=== PATIENT | female | born 1970 | race Caucasian/White ===

== ENCOUNTER 2020-08-05 15:42 | Emergency (ER) | payer SELFPAY ==
[~2020-08-05] VITALS: Ht 170.2 cm; Wt 77.3 kg
[2020-08-05 15:45] VITALS: Ht 170.2 cm; Wt 77.3 kg
[2020-08-05] MEDS ORDERED: NAPROSYN500 MG PO (17:56)
[2020-08-05 18:00] VITALS: BP 168/89
== END 2020-08-05 18:00 | disposition home or self-care (01) ==
LOC: D.ER 15:42
DX: M25.531 Pain in right wrist (principal)

== ENCOUNTER 2021-01-03 23:36 | Emergency (ER) | payer SELFPAY ==
[~2021-01-03] VITALS: Ht 170.2 cm; Wt 90.9 kg
[~2021-01-03 23:36] MED LIST: NAPROSYN500 MG PO
[2021-01-03 23:47] VITALS: Ht 170.2 cm; Wt 90.9 kg
[2021-01-04] MEDS ORDERED: NAPROSYN500 MG PO (00:30)
[2021-01-04] MEDS ORDERED: TYLENOL ARTHRI650 MG PO (00:30)
[2021-01-04] MEDS ORDERED: LISINOPRIL5 MG PO (01:11)
[2021-01-04 02:26] VITALS: BP 175/93
== END 2021-01-04 02:27 | disposition home or self-care (01) ==
LOC: D.ER 23:36
DX: I10 Essential (primary) hypertension (principal); S93.401A Sprain of unspecified ligament of right ankle, initial encounter; S93.601A Unspecified sprain of right foot, initial encounter; Z91.14 Patient's other noncompliance with medication regimen; W19.XXXA Unspecified fall, initial encounter; Y93.9 Activity, unspecified; Y92.9 Unspecified place or not applicable; E11.9 Type 2 diabetes mellitus without complications

== ENCOUNTER 2021-03-02 02:03 | Inpatient (IN) | payer MEDICAID ==
[~2021-03-02] VITALS: Ht 170.2 cm; Wt 109.1 kg
[2021-03-02] VITALS (7 sets, daily range): BP systolic 128–196; BP diastolic 86–137; Ht 170.2 cm; Wt 109.1 kg
[~2021-03-02 02:03] MED LIST changes: +LISINOPRIL5 MG PO; +TYLENOL ARTHRI650 MG PO
[2021-03-02 02:27] LABS: BASOPHILS 0.2 % (0-2); EOSINOPHILS 1.7 % (0-7); HEMATOCRIT 36.8 % (36.0-48.0); HEMOGLOBIN 11.8 g/dL (12-16); IMMATURE GRANULOCYTES 0.3 % (0-5); LYMPHOCYTE ABS# 3.21 10x3/uL (1.18-3.74); LYMPHOCYTES 26.8 % (15-50); MCHC 32.1 g/dL (31.0-37.0); MCV 81.2 fL (80.0-100.0); MEAN PLATELET VOLUME 9.9 fL (7.4-10.4); MONOCYTES 5.7 % (2-11); NEUTROPHIL ABS# 7.82 10x3/uL (1.56-6.13); NEUTROPHILS 65.3 % (40-80); PLATELET COUNT 374 10x3/uL (130-400); RBC 4.53 10x6/uL (4.00-5.40); RDW 15.9 % (11.5-14.5)
[2021-03-02 02:36] LABS: CALC OSMOLALITY 279 mosm/kg (275-300); CALCIUM 8.5 mg/dL (8.5-10.1); CARBON DIOXIDE 27.9 mmol/L (21.0-32.0); CHLORIDE - SERUM 103 mmol/L (98-107); CREATININE - SERUM 1.1 mg/dL (0.6-1.3); GLUCOSE 120 mg/dL (74-106); POTASSIUM - SERUM 3.5 mmol/L (3.5-5.1); SODIUM 139 mmol/L (136-145); UREA NITROGEN 15 mg/dL (7-18); eGFR NON AFRICAN AMERICAN 55 mL/min (90-120)
[2021-03-02 02:39] LABS: APTT 25.8 SECONDS (22.8-39.4); INR 1.16 (0.85-1.17); PROTIME 13.7 SECONDS (11.6-15.0)
[2021-03-02 02:50] LABS: ALBUMIN 2.8 g/dL (3.4-5.0); ALKALINE PHOSPHATASE 142 U/L (30-120); ALT (SGPT) 40 U/L (10-68); BILIRUBIN - TOTAL 0.32 mg/dL (0.2-1.3); CKMB 3.6 U/L (0.0-3.6); CREATINE KINASE 136 UL (21-215); PRO BNP 3803 pg/mL (0-125); PROTEIN - SERUM 7.6 g/dL (6.4-8.2); TROPONIN-I 0.055 ng/mL (0.000-0.060)
--- NOTE | 2021-03-02 05:28 | NUR ---
0435-- PT TO ROOM WITH ER STAFF. VERY DRAMATIC ABOUT HER DOG HAVING TO GO HOME BUT THEN STATES THAT THERE'S NO WAY THAT SHE WOULD HAVE BEEN ABLE TO TAKE HER OUT TO POTTY. PT REPORTS THAT SHE WASN'T ABLE TO BREATH WHILE IN BED LAST NIGHT & SHE TOLD HER TO BRING HER IN AND HE DECIDED TO YELL AT HER FOR 2 HOURS PRIOR TO HER ARRIVAL. 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 PT ALSO STATES THAT HER RIGHT FOOT IS BROKEN BUT NO ONE IS TAKING THE XRAY OF IT PROPERLY. X2 IV RIGHT WRIST & LEFT UPPER SHOULDER. STATES THAT SHE ISN'T DIABETIC BUT RATHER HER PANCREAS WAS SMASHED WHEN SHE WAS YOUNG & CAUSES HER TO BE HYPOGLYCEMIC.
--- NOTE | 2021-03-02 07:40 | NUR ---
Sitting up in bed, awake/alert/oriented, T/R self ad jenni, cont of B/B with BRPs per self ad jenni, denies pain/other discomfort at this time, call light/phone/water within reach, no s/s of acute distress observed.
--- NOTE | 2021-03-02 11:30 | NUR ---
BP 196/137, called AYANA Elizabeth, received order to increase Lisinopril to 10 mg and for IV Hydralazine 10 mg q 6h PRN for SBP > 170 or DBP > 105.
--- NOTE | 2021-03-02 12:40 | NUR ---
Pt called nurse's station stating "something's not right", call answered by FIFI Casas, pt lips swollen, breathing labored, and swelling throughout her body, FIFI Casas called AYANA Elizabeth and got order for Pepcid and Benadryl IV now, added Vanc to her allergy list, allergy bracelet placed on pt at this time
--- NOTE | 2021-03-02 13:00 | NUR ---
Rechecked, cont to improve with noticeable decrease in swelling and SOB is greatly lessened.
--- NOTE | 2021-03-02 19:20 | NUR ---
PT IN BED, AAO X 4, RESP EVEN AND UNLABORED, NO DISTRESS NOTED, CL IN REACH, SR UP X 2.
[2021-03-02 22:31] LABS: BILIRUBIN NEGATIVE (NEGATIVE); KETONE NEGATIVE (NEGATIVE); NITRITE NEGATIVE (NEGATIVE); UROBILINOGEN NORMAL mg/dL (< 2)
[2021-03-02 22:39] LABS: UDS - AMPHET POSITIVE QUAL (NEGATIVE); UDS - BARB NEGATIVE QUAL (NEGATIVE); UDS - BENZO NEGATIVE QUAL (NEGATIVE); UDS - COCAINE NEGATIVE QUAL (NEGATIVE); UDS - OPIATE NEGATIVE QUAL (NEGATIVE); UDS - PCP NEGATIVE QUAL (NEGATIVE); UDS - THC NEGATIVE QUAL (NEGATIVE)
[2021-03-03 00:06] VITALS: BP 165/97
--- NOTE | 2021-03-03 03:24 | NUR ---
I have reviewed this patient and I concur with the Shift Assessment completed by the Licensed Practical Nurse today this shift.
[2021-03-03 04:10] VITALS: BP 148/87
--- NOTE | 2021-03-03 08:30 | NUR ---
BREATHING EASILY. LUNG SOUNDS CLEAR. NO DISTRESS OR COMPLAINTS. WANTS TO GO HOME. TOLD AYANA WELLS. AWAITING DC ORDERS.
[2021-03-03 09:47] LABS: ALBUMIN 2.7 g/dL (3.4-5.0); BILIRUBIN - TOTAL 0.35 mg/dL (0.2-1.3); CALCIUM 8.7 mg/dL (8.5-10.1); CARBON DIOXIDE 24.9 mmol/L (21.0-32.0); CREATININE - SERUM 1.1 mg/dL (0.6-1.3); MAGNESIUM - SERUM 1.9 mg/dL (1.8-2.4); PHOSPHOROUS 2.9 mg/dL (2.5-4.9); POTASSIUM - SERUM 3.9 mmol/L (3.5-5.1); PROTEIN - SERUM 7.2 g/dL (6.4-8.2)
[2021-03-03 10:13] LABS: BASOPHILS 0.1 % (0-2); EOSINOPHILS 0 % (0-7); HEMATOCRIT 35.4 % (36.0-48.0); IMMATURE GRANULOCYTES 0.2 % (0-5); LYMPHOCYTE ABS# 1.66 10x3/uL (1.18-3.74); LYMPHOCYTES 9.5 % (15-50); MCHC 31.1 g/dL (31.0-37.0); MCV 80.5 fL (80.0-100.0); MEAN PLATELET VOLUME 9.9 fL (7.4-10.4); MONOCYTES 5.4 % (2-11); NEUTROPHIL ABS# 14.77 10x3/uL (1.56-6.13); NEUTROPHILS 84.8 % (40-80); PLATELET COUNT 418 10x3/uL (130-400); RDW 15.9 % (11.5-14.5)
[2021-03-03 10:14] LABS: WBC 17.4 10x3/uL (4.8-10.8)
[2021-03-03] MEDS ORDERED: ALBUTEROL SULF8.5 GM INH (11:13)
[2021-03-03] MEDS ORDERED: LEVOFLOXACIN500 MG PO (11:13)
--- NOTE | 2021-03-03 13:20 | NUR ---
Pt approached the desk with bags in tow, stating that the doctor said she was going home but she hasn't received any paperwork. This nurse checked, no orders written for discharge at this time, paged PA Glenn Vail, pt states "I can't keep racking up charges, I am leaving", paperwork presented to pt and read to her, pt signed and left.
== END 2021-03-03 13:35 | disposition home or self-care (01) | DRG 195 ==
LOC: D.ER 02:03 → D.M2 03:35
PROVIDERS: Family Medicine; ADMIT Family Medicine; ATTEND Family Medicine
DX: J18.9 Pneumonia, unspecified organism (principal); I10 Essential (primary) hypertension; F17.200 Nicotine dependence, unspecified, uncomplicated; F15.90 Other stimulant use, unspecified, uncomplicated

== ENCOUNTER 2021-03-17 14:18 | Inpatient (IN) | payer MEDICAID ==
[2021-03-17] VITALS (22 sets, daily range): BP systolic 155–186; BP diastolic 106–141
[~2021-03-17] VITALS: Ht 170.2 cm; Wt 106.1 kg
[~2021-03-17 14:18] MED LIST changes: +ALBUTEROL SULF8.5 GM INH; +LEVOFLOXACIN500 MG PO
[2021-03-17 15:10] LABS: BASOPHILS 1.5 % (0-2); HEMOGLOBIN 11.9 g/dL (12-16)
[2021-03-17 15:11] LABS: EOSINOPHILS 1.7 % (0-7); HEMATOCRIT 38.3 % (36.0-48.0); LYMPHOCYTES 25.1 % (15-50); MCH 23.7 pg (26.0-34.0); MCHC 31.2 g/dL (31.0-37.0); MEAN PLATELET VOLUME 7.9 fL (7.4-10.4); MONOCYTES 7.2 % (2-11); NEUTROPHILS 64.5 % (40-80); PLATELET COUNT 363 10x3/uL (130-400); RBC 5.04 10x6/uL (4.00-5.40); RDW 16.3 % (11.5-14.5); WBC 11.6 10x3/uL (4.8-10.8)
[2021-03-17 15:23] LABS: CALC OSMOLALITY 277 mosm/kg (275-300); CALCIUM 8.6 mg/dL (8.5-10.1); CHLORIDE - SERUM 104 mmol/L (98-107); POTASSIUM - SERUM 4.1 mmol/L (3.5-5.1); SODIUM 138 mmol/L (136-145); UREA NITROGEN 16 mg/dL (7-18); eGFR NON AFRICAN AMERICAN 62 mL/min (90-120)
[2021-03-17 15:24] LABS: GLUCOSE 117 mg/dL (74-106)
[2021-03-17 15:40] LABS: APTT 21.3 SECONDS (22.8-39.4)
[2021-03-17 15:41] LABS: INR 3.08 (0.85-1.17); PROTIME 29.6 SECONDS (11.6-15.0)
[2021-03-17 15:43] LABS: ALBUMIN 2.8 g/dL (3.4-5.0); ALKALINE PHOSPHATASE 157 U/L (30-120); ALT (SGPT) 28 U/L (10-68); CKMB 2.8 U/L (0.0-3.6); CREATINE KINASE 94 UL (21-215); PRO BNP 3935 pg/mL (0-125); PROTEIN - SERUM 7.5 g/dL (6.4-8.2)
[2021-03-17 15:45] LABS: TROPONIN-I 0.081 ng/mL (0.000-0.060)
[2021-03-17 16:18] LABS: THYROID STIMULATING HORMONE 1.28 uIU/mL (0.36-3.74)
--- NOTE | 2021-03-17 18:25 | NUR ---
PT ARRIVED ON UNIT. HR 98 PT BP VIA L ARM 193/129 NITRO INFUSING AT 25MCG/KG/MIN. WILL CALL PHYSICIAN FOR FURTHER ORDERS. MAGNUS GIVEN UPDATE REGAURDING PT ARRIVAL. ATTEMPT TO GET PIV AT THIS TIME. PT SLEEPING COMFORTABLY. NO FURTHER NEW FINDINGS.
--- NOTE | 2021-03-17 18:37 | NUR ---
DR CARRINGTON PAGED GIVEN UPDATE REGAURDING PT SBP 187/128 NITRO AT MAX 30MCG/MIN STATED TO CONSULT CARDIOLOGY AT THIS TIME. CARDIOLOGY PAGED. AWAITING CALL BACK.
[2021-03-17 20:08] LABS: % SATURATION 4 % (15-55); IRON 23 ug/dl (35-150); TOTAL IRON BIND CAPACITY 528 ug/dl (260-445)
[2021-03-17 20:11] LABS: UNSAT IRON BIND CAPACITY 505 ug/dl (150-375)
[2021-03-18] VITALS (89 sets, daily range): BP systolic 98–197; BP diastolic 60–137; Ht 170.2 cm; Wt 106.1 kg
--- NOTE | 2021-03-18 04:00 | NUR ---
PT HAD MAXED OUT ON TNG. CALL PUT IN TO DR. JORDAN, WHO GAVE ORDERS TO GIVE HYDRALAZINE ORDERED (HAD JUST REC'D SAME) AND NOT TO TITRATE THE TNG. PUMP IS AT MAX DOSAGE. WILL CONT TO MONITOR. HAS TO USE THE BSC FREQUENTLY. CONT POC
[2021-03-18 06:52] LABS: BASOPHILS 0.8 % (0-2); EOSINOPHILS 0.8 % (0-7); HEMATOCRIT 35.5 % (36.0-48.0); HEMOGLOBIN 11.3 g/dL (12-16); LYMPHOCYTES 9.7 % (15-50); MCH 24.1 pg (26.0-34.0); MCV 75.4 fL (80.0-100.0); MEAN PLATELET VOLUME 7.4 fL (7.4-10.4); MONOCYTES 5.8 % (2-11); NEUTROPHILS 82.9 % (40-80); RBC 4.71 10x6/uL (4.00-5.40); RDW 16.3 % (11.5-14.5)
[2021-03-18 06:54] LABS: PLATELET COUNT 449 10x3/uL (130-400)
[2021-03-18 07:08] LABS: ALBUMIN 2.9 g/dL (3.4-5.0); ANION GAP 13.4 mmol/L (8-16); BILIRUBIN - TOTAL 0.97 mg/dL (0.2-1.3); CALCIUM 8.9 mg/dL (8.5-10.1); CARBON DIOXIDE 27.5 mmol/L (21.0-32.0); CREATININE - SERUM 1.1 mg/dL (0.6-1.3); MAGNESIUM - SERUM 1.8 mg/dL (1.8-2.4); POTASSIUM - SERUM 3.9 mmol/L (3.5-5.1); PROTEIN - SERUM 7.5 g/dL (6.4-8.2)
[2021-03-18 07:15] LABS: INR 1.29 (0.85-1.17); PROTIME 14.9 SECONDS (11.6-15.0)
--- NOTE | 2021-03-18 15:41 | NUR ---
0700-RECIEVED AWAKE AND ALERT-AGITATED -RESTLESS-UP TO BEDSIDE COMMODE CHAIR-REQUESTING BP CUFF OFF STATES-CAN'T TAKE IT ANYMORE'-PLACED CUFF ON RADIAL AND MONITORED PT-STATED COULD DO THIS-STRESSED THE LOUD SCREAMING FROM OTHER PTS IS MAKING HER ANXIOUS-COMPROMISED TO CLOSING SLIDING DOOR
--- NOTE | 2021-03-18 15:43 | NUR ---
1030-DR STRICKLAND AT BEDSIDE-SPOKE WITH PT -PT COMPLAINT OF L KNEE IN BACK PAIN-NEGATIVE HOMED CHECK-SCDS PLACED- 1100-DR DIMAS AT BEDSIDE -STATUS REPORT GIVEN-ORDER RECIEVED AND NOTED 1300-NTG GTT CHANGED-TO LABATOLOL GTT AND STARTED AT 0.3- 1330 INC LABATOLOL TO 0.5MG IVGTT 1430-PT STATED SOB -SAT 93%-O2 AT 2L PLASTICS SUPERVISOR-PLACED AND NIBP 114/68-LABATOLOL DECREASED TO 0.3
--- NOTE | 2021-03-18 20:00 | NUR ---
REC'D REPORT AND ASSUMED CARE OF PT. INITIAL ASSESSMENT COMPLETED AND RECORDED PER FLOW SHEET. ON LOPRESSOR DRIP PER PUMP WITH BP SHOWING IN 120 & 70S-80S. DENIES NEEDS AT PRESENT. WILL MONITOR
[2021-03-18 20:34] LABS: BILIRUBIN NEGATIVE (NEGATIVE); KETONE NEGATIVE (NEGATIVE); NITRITE NEGATIVE (NEGATIVE); UROBILINOGEN NORMAL mg/dL (< 2)
[2021-03-18 20:41] LABS: WHITE CELLS - URINE 25-50 HPF (0-4)
[2021-03-18 20:42] LABS: BACTERIA MODERATE HPF (NONE SEEN)
[2021-03-18 20:43] LABS: UDS - AMPHET POSITIVE QUAL (NEGATIVE); UDS - BARB NEGATIVE QUAL (NEGATIVE); UDS - BENZO NEGATIVE QUAL (NEGATIVE); UDS - COCAINE NEGATIVE QUAL (NEGATIVE); UDS - OPIATE NEGATIVE QUAL (NEGATIVE); UDS - PCP NEGATIVE QUAL (NEGATIVE); UDS - THC NEGATIVE QUAL (NEGATIVE)
[2021-03-19] VITALS (52 sets, daily range): BP systolic 94–148; BP diastolic 64–106
[2021-03-19 04:41] LABS: BASOPHILS 0.9 % (0-2); EOSINOPHILS 2.2 % (0-7); HEMOGLOBIN 10.7 g/dL (12-16); LYMPHOCYTES 28.2 % (15-50); MCH 23.7 pg (26.0-34.0); MCHC 31.4 g/dL (31.0-37.0); MCV 75.5 fL (80.0-100.0); MEAN PLATELET VOLUME 7.4 fL (7.4-10.4); MONOCYTES 7.8 % (2-11); NEUTROPHILS 60.9 % (40-80); PLATELET COUNT 370 10x3/uL (130-400); RDW 16.2 % (11.5-14.5)
[2021-03-19 04:50] LABS: WBC 12.3 10x3/uL (4.8-10.8)
[2021-03-19 04:52] LABS: INR 1.38 (0.85-1.17); PROTIME 15.7 SECONDS (11.6-15.0)
[2021-03-19 04:53] LABS: ALBUMIN 2.4 g/dL (3.4-5.0); BILIRUBIN - TOTAL 0.67 mg/dL (0.2-1.3); CALCIUM 8.4 mg/dL (8.5-10.1); CARBON DIOXIDE 24.4 mmol/L (21.0-32.0); CREATININE - SERUM 1.2 mg/dL (0.6-1.3); MAGNESIUM - SERUM 1.8 mg/dL (1.8-2.4); POTASSIUM - SERUM 3.4 mmol/L (3.5-5.1); PROTEIN - SERUM 6.7 g/dL (6.4-8.2)
--- NOTE | 2021-03-19 14:50 | EC ---
PATIENT:MICHAEL MEJIA DATE OF SERVICE: 03/17/21 SEX: F MEDICAL RECORD: [id number] DATE OF : [birth year] LOCATION:[facility] AGE OF PATIENT: 51 ADMISSION DATE: 03/17/21 REFERRING PHYSICIAN: INTERPRETING PHYSICIAN: JACKSON FARAH MD ECHOCARDIOGRAM REPORT ECHO CHARGES 4 ECHO COMPLETE Date: 03/18/21 CLINICAL DIAGNOSIS: DYSPNEA ECHOCARDIOGRAPHIC MEASUREMENTS (adult normal given) AC root (d.<3.7cm) 3.2 cm LV Septum d (<1.2 cm> 0.9 cm Valve Excursion 1.5 cm LV Septum (systole) 1.2 cm Left Atria (s.<4.0cm> 4.0 cm LVPW d(<1.2cm) 0.7 cm RV (d.<2.3cm) 3.2 cm LVPW (sytole) 1.1 cm LV diastole(<5.6CM) 6.1 cm MV E-F(>70mm/sec) cm LV systole 5.1 cm LVOT Diameter 1.9 cm MV exc.(>10mm) 1.0 cm Est.ejection fraction (50-75%) % DOPPLER: LVIT cm/sec A 56 cm/sec E 124 cm/sec LA cm/sec RVSP 34 mmHg LVOT 140 cm/sec AOP1/2T m/s Asc. Ao 161 cm/sec RVOT 78 cm/sec RA cm/sec PA 94 cm/sec AV Gradient Peak 10.3 mmHg AV Mean 6.2 mmHg AV Area 2.8 cm MV Gradient Peak 8.5 mmHg MV Mean 3.6 mmHg MV Area cm COMMENTS: Grinder Set Up Operator Surface: Francesca SANZ Communications Agent: 5 Dr. Farah TAPE# Pericardial Effusion N DATE OF SERVICE: CLINICAL DIAGNOSIS: Dyspnea. INTERPRETATION: Dilated left ventricular chamber with severe global LV contractile dysfunction with ejection fraction 15% to 20%. Left atrial chamber dilated. Right atrial chamber dilatation. Right ventricular chamber size and function appears normal. Aortic valve appears normal. No aortic stenosis/regurgitation. Mitral valve appears normal. Mild mitral regurgitation. Tricuspid valve appears normal. Mild tricuspid regurgitation. ECHOCARDIOGRAM REPORT [id number] MICHAEL MEJIA Pulmonic valve appears normal. No pulmonary regurgitation. No pericardial effusion visualized. IMPRESSION: Dilated left ventricular chamber with severe global left ventricular contractile dysfunction with an ejection fraction of 15% to 20%. TRANSINT:[id number] Voice Confirmation ID: [id number] DOCUMENT ID: [id number] JACKSON FARAH MD at 1450 CC: [id number] DICTATION DATE: 03/18/211716 BRAND ADVISOR: 03/18/21 193 ADM IN [facility] [address] [id number]
--- NOTE | 2021-03-19 15:03 | NUR ---
1415-DR DIMAS AT BEDSIDE -ORDERS RECIEVED AND NOTED-LABATOLOL GTT D/C'D-R UPPER SHOULDER IV D/C'-2 IV'S ON L UPPER CHEST D/C'D-R AC IV SALINE LOCKKED-COMPLETE AM CARE DONE WITH LINEN CHANGE
--- NOTE | 2021-03-19 16:11 | NUR ---
1602 ARRIVED FROM ICU VIA BED TRANSPORT O2 AT 2L/NC PATIENT SLEEPING
--- NOTE | 2021-03-19 17:06 | NUR ---
1620 APPLIED TELE MONITOR SR 75
--- NOTE | 2021-03-19 19:00 | NUR ---
BEDSIDE REPORT RECEIVED AND CARE OF PT ASSUMED. PT LYING IN SUPINE POSITION WITH EYES CLOSED AND EASY RESPIRATIONS. TELEMETRY IN PLACE AND READING 79 SR AT THIS ASSESSMENT. IV TO RIGHT FA SALINE LOCKED. WILL MONITOR FOR NEEDS.
--- NOTE | 2021-03-19 20:11 | NUR ---
HS MEDICATIONS GIVEN. WILL CONTINUE TO MONITOR FOR NEEDS.
--- NOTE | 2021-03-19 20:45 | NUR ---
GAVE LISA CRACKERS AND CHOCOLATE PUDDING FOR HS SNACK.
[2021-03-20] VITALS: BP 139/83
[2021-03-20 04:00] VITALS: BP 131/89
[2021-03-20 06:27] LABS: BASOPHILS 0.3 % (0-2); EOSINOPHILS 2.2 % (0-7); HEMATOCRIT 34.7 % (36.0-48.0); LYMPHOCYTES 24.8 % (15-50); MCH 23.9 pg (26.0-34.0); MCHC 31.8 g/dL (31.0-37.0); MCV 75.3 fL (80.0-100.0); MEAN PLATELET VOLUME 8.1 fL (7.4-10.4); MONOCYTES 7.4 % (2-11); NEUTROPHILS 65.3 % (40-80); PLATELET COUNT 410 10x3/uL (130-400); RBC 4.61 10x6/uL (4.00-5.40); RDW 16.4 % (11.5-14.5); WBC 13.8 10x3/uL (4.8-10.8)
[2021-03-20 06:29] LABS: INR 1.35 (0.85-1.17); PROTIME 15.5 SECONDS (11.6-15.0)
[2021-03-20 06:37] LABS: ALBUMIN 2.3 g/dL (3.4-5.0); BILIRUBIN - TOTAL 0.4 mg/dL (0.2-1.3); CALCIUM 8.8 mg/dL (8.5-10.1); CARBON DIOXIDE 24.6 mmol/L (21.0-32.0); CREATININE - SERUM 1.2 mg/dL (0.6-1.3); MAGNESIUM - SERUM 1.9 mg/dL (1.8-2.4); POTASSIUM - SERUM 3.6 mmol/L (3.5-5.1); PROTEIN - SERUM 6.9 g/dL (6.4-8.2)
--- NOTE | 2021-03-20 08:50 | NUR ---
PATIENT IN BED WITH EYES CLOSED RESTING QUIETLY. NO COMPLAINTS OR SIGNS OF DISTRESS. CALL LIGHT WITHIN REACH.
[2021-03-20 10:49] VITALS: BP 133/73
[2021-03-20 12:28] VITALS: BP 158/101
--- NOTE | 2021-03-20 16:00 | NUR ---
UP AMBULATING IN [facility].
[2021-03-20 18:16] VITALS: BP 159/99
--- NOTE | 2021-03-20 18:54 | NUR ---
PATIENT IN BED WITH IV INTACT. NO COMPLAINTS OR SIGNS OF DISTRESS. EYES CLOSED RESTING QUIETLY. CALL LIGHT WITHIN REACH.
--- NOTE | 2021-03-20 19:00 | NUR ---
BEDSIDE REPORT RECEIVED AND CARE OF PT ASSUMED. PT LYING IN SUPINE POSITION WITH EYES CLOSED. IV TO RIGHT FA SALINE LOCKED. TELEMETRY IN PLACE AND READING SR W/ PVC'S AT THIS ASSESSMENT. WILL MONITOR FOR NEEDS.
[2021-03-20 19:27] LABS: % SATURATION 3 % (15-55); IRON 15 ug/dl (35-150); TOTAL IRON BIND CAPACITY 414 ug/dl (260-445); UNSAT IRON BIND CAPACITY 399 ug/dl (150-375)
[2021-03-20 20:00] VITALS: BP 131/86
--- NOTE | 2021-03-20 20:49 | NUR ---
HS MEDICATIONS GIVEN. WILL CONTINUE TO MONITOR FOR NEEDS.
[2021-03-21 04:00] VITALS: BP 140/81
[2021-03-21 06:01] LABS: BASOPHILS 0.5 % (0-2); EOSINOPHILS 2.6 % (0-7); HEMATOCRIT 34.7 % (36.0-48.0); LYMPHOCYTES 27.5 % (15-50); MCH 23.8 pg (26.0-34.0); MCHC 31.6 g/dL (31.0-37.0); MCV 75.5 fL (80.0-100.0); MEAN PLATELET VOLUME 8.3 fL (7.4-10.4); MONOCYTES 8.7 % (2-11); NEUTROPHILS 60.7 % (40-80); PLATELET COUNT 376 10x3/uL (130-400); RDW 16.5 % (11.5-14.5); WBC 11.4 10x3/uL (4.8-10.8)
[2021-03-21 06:03] LABS: INR 1.29 (0.85-1.17); PROTIME 14.9 SECONDS (11.6-15.0)
[2021-03-21 06:26] LABS: ALBUMIN 2.4 g/dL (3.4-5.0); ANION GAP 13.2 mmol/L (8-16); BILIRUBIN - TOTAL 0.35 mg/dL (0.2-1.3); CALCIUM 8.7 mg/dL (8.5-10.1); CARBON DIOXIDE 23.7 mmol/L (21.0-32.0); CREATININE - SERUM 1.3 mg/dL (0.6-1.3); POTASSIUM - SERUM 3.9 mmol/L (3.5-5.1); PROTEIN - SERUM 6.5 g/dL (6.4-8.2)
[2021-03-21 09:12] VITALS: BP 179/111
[2021-03-21] MEDS ORDERED: FLORAJEN DIGES1 EACH PO (11:22)
[2021-03-21] MEDS ORDERED: LASIX40 MG PO (11:22)
[2021-03-21] MEDS ORDERED: NICODERM CQ1 EAC3 TRANSDERM (11:22)
[2021-03-21] MEDS ORDERED: NORMODYNE / TR200 MG PO (11:22)
[2021-03-21] MEDS ORDERED: ZYFLO600 MG PO (11:23)
[2021-03-21 11:52] VITALS: BP 126/60
[2021-03-21] MEDS ORDERED: ZYVOX600 MG PO (12:34)
--- NOTE | 2021-03-21 13:33 | MORECARE ---
CASE MANAGEMENT DISCHARGE SUMMARY PATIENT: MICHAEL MEJIA UNIT: [id number] ADM DATE: 03/17/21 AGE: 51 : 68 SEX: F ROOM/BED: D.2235 AUTHOR: JOSE,DOC PHYSICIAN: REFERRING PHYSICIAN: DAYO CARRINGTON MD DATE OF SERVICE: 03/21/21 Case Management Discharge Planning Summary COMMENTS ENTERED DATE: 03/21/21 13:25 CT COMMENT TYPE: Discharge Planning REVIEWER: Nicol Urbano CM met with patient at bedside after obtaining verbal consent. CM discussed availability / needs of home health, REHAB and medical equipment. Patient denies any needs for discharge. I discussed the chapman of her medications at [facility] using her good rx card and she states she can afford her medications. Family is here to transport her home. Cm to follow and assist as needed. DCP REVIEW SUMMARY ANTICIPATED D/C DATE: EXPECTED LOS : CASE STATUS: DCP Initiated INITIAL REVIEW: 03/17/2021 INITIAL REVIEWER: Nicol Urbano FINAL DISCHARGE DISPOSITION: : FINAL REVIEWER: FINAL REVIEW DATE: DCP Focus Questions & Answers DCP Screen QUESTION: ANSWER High Risk Factors: : Poor health literacy DCP Evaluation QUESTION: ANSWER Patient and/or caregiver agree upon recommended discharge plan? : Yes Family / Caregiver's ability to cope with chronic illness: : b. Minimal (occasionally not dependable to meet pt's. needs, can meet pt's. basic ADL's) Patient's current cognitive status: : *Oriented to person, place, situation, time and present Patient's ability to cope with chronic illness : b. Minimal (2 - 3 ED visits in 6 mos., limited financial resources, occasionally misses appts.) Does the patient have the ability to pay for or attain post discharge needs / services? : Yes Functional screen assessment: : Basic needs can adequately be met by self Family / Caregiver's ability to cope with chronic illness: : b. Minimal (occasionally not dependable to meet pt's. needs, can meet pt's. basic ADL's) Physical Status: : Independent with ADL's Is there a likelihood that the patient will require additional services to return to the preadmission environment? : No Living Arrangements: : Home with Spouse/Significant Other Results of this evaluation have been discussed with: : Patient Patient with capacity for self-care or can be cared for in same environment as prior to hospitalization? : Yes Baseline cognitive status: : *Oriented to person, place, situation, time and present Medication Management: : Patient states can afford medications Pharmacy name([facility]): : [facility] Does Patient have transportation to get home and to follow-up medical appointments when discharged from the hospital? : Yes Would patient like to participate in any Care Coordination programs (if applicable): : Not applicable Other Care Coordination programs/comments: : Patient states can afford medication. Does the patient have electricity at home? : Yes Does the patient have running water in their house? : Yes Equipment in use: : None Mental health screen: : No mental health history DCP Re-evaluation QUESTION: ANSWER Would patient like to participate in any Care Coordination programs (if applicable): : Not applicable PATIENT: MICHAEL MEJIA ENCOUNTER: [id number] MEDICAL RECORD#: [id number] ADMISSION DATE: 03/17/2021 DISCHARGE DATE: ATTENDING MD: DAYO CHUA : AGE: 51 MARITAL STATUS: U DC PLAN ID: [id number] FACILITY: [facility] PRINTED ON: 03/21/21 13:33 CT All edits/amendments must be made on the electronic document DICTATION DATE: 03/21/21 133 [employer] FOUNDER: ARIE 03/21/21 133 RPT#: [id number] DC DATE: STATUS: ADM IN [facility] [address] [place] [address] END OF REPORT
--- NOTE | 2021-03-22 16:32 | MORECARE ---
CASE MANAGEMENT DISCHARGE SUMMARY PATIENT: MICHAEL MEJIA UNIT: [id number] ADM DATE: 03/17/21 AGE: 51 : 68 SEX: F ROOM/BED: D.2235 AUTHOR: JOSE,DOC PHYSICIAN: REFERRING PHYSICIAN: DAYO CARRINGTON MD DATE OF SERVICE: 03/22/21 Case Management Discharge Planning Summary COMMENTS ENTERED DATE: 03/21/21 13:25 CT COMMENT TYPE: Discharge Planning REVIEWER: Nicol Urbano CM met with patient at bedside after obtaining verbal consent. CM discussed availability / needs of home health, REHAB and medical equipment. Patient denies any needs for discharge. I discussed the chapman of her medications at [facility] using her good rx card and she states she can afford her medications. Family is here to transport her home. Cm to follow and assist as needed. DCP REVIEW SUMMARY ANTICIPATED D/C DATE: EXPECTED LOS : CASE STATUS: DCP Initiated INITIAL REVIEW: 03/17/2021 INITIAL REVIEWER: Nicol Urbano FINAL DISCHARGE DISPOSITION: : FINAL REVIEWER: FINAL REVIEW DATE: DCP Focus Questions & Answers DCP Screen QUESTION: ANSWER High Risk Factors: : Poor health literacy DCP Evaluation QUESTION: ANSWER Patient's ability to cope with chronic illness : b. Minimal (2 - 3 ED visits in 6 mos., limited financial resources, occasionally misses appts.) Patient's current cognitive status: : *Oriented to person, place, situation, time and present Family / Caregiver's ability to cope with chronic illness: : b. Minimal (occasionally not dependable to meet pt's. needs, can meet pt's. basic ADL's) Patient and/or caregiver agree upon recommended discharge plan? : Yes Physical Status: : Independent with ADL's Family / Caregiver's ability to cope with chronic illness: : b. Minimal (occasionally not dependable to meet pt's. needs, can meet pt's. basic ADL's) Functional screen assessment: : Basic needs can adequately be met by self Does the patient have the ability to pay for or attain post discharge needs / services? : Yes Living Arrangements: : Home with Spouse/Significant Other Is there a likelihood that the patient will require additional services to return to the preadmission environment? : No Baseline cognitive status: : *Oriented to person, place, situation, time and present Patient with capacity for self-care or can be cared for in same environment as prior to hospitalization? : Yes Results of this evaluation have been discussed with: : Patient Medication Management: : Patient states can afford medications Pharmacy name(s[facility] : [facility] Does Patient have transportation to get home and to follow-up medical appointments when discharged from the hospital? : Yes Would patient like to participate in any Care Coordination programs (if applicable): : Not applicable Does the patient have electricity at home? : Yes Other Care Coordination programs/comments: : Patient states can afford medication. Does the patient have running water in their house? : Yes Equipment in use: : None Mental health screen: : No mental health history DCP Re-evaluation QUESTION: ANSWER Would patient like to participate in any Care Coordination programs (if applicable): : Not applicable PATIENT: MICHAEL MEJIA ENCOUNTER: [id number] MEDICAL RECORD#: [id number] ADMISSION DATE: 03/17/2021 DISCHARGE DATE: 03/21/2021 ATTENDING MD: DAYO CHUA : AGE: 51 MARITAL STATUS: U DC PLAN ID: [id number] FACILITY: [facility] PRINTED ON: 03/22/21 16:31 CT All edits/amendments must be made on the electronic document DICTATION DATE: 03/22/211630 PARAPLANNER: ARIE 03/22/211630 RPT#: [id number] DC DATE:03/21/21 STATUS: DIS IN [facility] [address] [place] [address] END OF REPORT
== END 2021-03-21 13:50 | disposition home or self-care (01) | DRG 281 ==
LOC: D.ER 14:18 → D.MS 17:15 → D.ICU 17:15 → D.MS 03-19 15:46
PROVIDERS: Emergency Medicine; Internal Medicine Hematology & Oncology; ADMIT Family Medicine Adult Medicine; ATTEND Family Medicine Adult Medicine
DX: I11.0 Hypertensive heart disease with heart failure (principal); I21.A1 Myocardial infarction type 2; F17.203 Nicotine dependence unspecified, with withdrawal; I50.9 Heart failure, unspecified; D50.9 Iron deficiency anemia, unspecified; E66.9 Obesity, unspecified; D69.6 Thrombocytopenia, unspecified; F19.10 Other psychoactive substance abuse, uncomplicated; Z68.36 Body mass index [BMI] 36.0-36.9, adult